=== PATIENT | male | born 1980 | race African-American/Black ===

== ENCOUNTER 2018-09-13 10:13 | Inpatient (IN) | payer MEDICAID, OTHER ==
[~2018-09-13] VITALS: Ht 182.9 cm; Wt 86.7 kg
[2018-09-13] MEDS ORDERED: HYDROCODONE/ACETAMINOPHEN 5/325MG TABLET PO ONE (11:30)
[2018-09-13] MEDS ORDERED: KETAMINE HCL 50 MG/ML 10ML IV ONE ×2 (12:15→14:00)
[2018-09-13] MEDS ORDERED: PROPOFOL 200MG/20ML VIAL IV ONE ×2 (12:15→14:00)
[2018-09-13 14:42] LABS: EOSINOPHILS % 0.7 % (0.0-5.0); HEMATOCRIT. 43.8 % (42.0-52.0); HEMOGLOBIN. 14.6 g/dL (14.0-18.0); LYMPHOCYTES % 17.3 % (20.0-50.0); MEAN CORPUSCULAR HEMOGLOBIN 29.4 pg (28.0-32.0); MEAN CORPUSCULAR VOLUME 88.2 fL (80.0-94.0); MEAN PLATELET VOLUME 7.4 fl (7.4-10.4); PLATELET 285 x1000/uL (130-400); RED BLOOD CELL COUNT 4.96 mill/uL (4.7-6.1); RED CELL DISTRIBUTION WIDTH 14.3 % (11.6-14.6)
[2018-09-13 14:49] LABS: CHLORIDE 106 mEq/L (98-107)
[2018-09-13 14:51] LABS: PROTHROMBIN TIME 9.8 sec (9.1-11.1)
[2018-09-13] MEDS ORDERED: ONDANSETRON HCL 4MG/2ML INJ IV PRN (15:15)
[2018-09-13] MEDS ORDERED: ACETAMINOPHEN 650MG/20.3ML UDC GT PRN (15:15)
[2018-09-13] MEDS ORDERED: ACETAMINOPHEN 325MG TABLET PO PRN (15:15)
[2018-09-13] MEDS ORDERED: ACETAMINOPHEN 650MG SUPP PR PRN (15:15)
[2018-09-13] MEDS: HYDROCODONE/ACETAMINOPHEN 10/325MG TABLET PO PRN (19:06)
[2018-09-13 23:00] VITALS: BP 142/75
[2018-09-14] VITALS: BP 142/75
[2018-09-14 00:03] LABS: CREATINE KINASE 587 IU/L (39-308); CREATINE KINASE MB FRACTION 1.5 ng/mL (0.5-3.6)
[2018-09-14] MEDS: HYDROCODONE/ACETAMINOPHEN 10/325MG TABLET PO PRN ×4 (00:22→20:55)
[2018-09-14 04:00] VITALS: BP 148/92
[2018-09-14] MEDS ORDERED: AMINOCAPROIC ACID 250 MG/ML 20ML VIAL ONE (06:51)
[2018-09-14] MEDS ORDERED: MAGNESIUM SULFATE 5GM/10ML VIAL IV ONE (06:51)
[2018-09-14 07:37] LABS: BASOPHILS % 0.7 % (0.0-2.0); EOSINOPHILS % 1.1 % (0.0-5.0); HEMATOCRIT. 43.3 % (42.0-52.0); HEMOGLOBIN. 14.7 g/dL (14.0-18.0); LYMPHOCYTES % 18.3 % (20.0-50.0); MEAN CORPUSCULAR HEMOGLOBIN 29.9 pg (28.0-32.0); MEAN CORPUSCULAR VOLUME 87.8 fL (80.0-94.0); MEAN PLATELET VOLUME 8.3 fl (7.4-10.4); MONOCYTES % 13.1 % (2.0-8.0); NEUTROPHILS % 66.8 % (40.0-76.0); PLATELET 286 x1000/uL (130-400); RED BLOOD CELL COUNT 4.93 mill/uL (4.7-6.1); RED CELL DISTRIBUTION WIDTH 13.9 % (11.6-14.6)
[2018-09-14 08:00] VITALS: BP 112/69
[2018-09-14] MEDS ORDERED: ENOXAPARIN 40MG/0.4ML SYR SUBCUT SCH (09:00)
[2018-09-14 11:34] LABS: CHLORIDE 101 mEq/L (98-107)
[2018-09-14 11:39] LABS: LDL CHOLESTEROL 61 mg/dL (5-100)
[2018-09-14 11:45] LABS: CREATINE KINASE 527 IU/L (39-308); CREATINE KINASE MB FRACTION < 1.0 ng/mL (0.5-3.6); HDL CHOLESTEROL 69 mg/dL (40-59); T4 FREE 0.87 ng/dL (0.76-1.46)
[2018-09-14 12:00] VITALS: BP 139/64
[2018-09-14 16:00] VITALS: BP 130/62
[2018-09-14 20:00] VITALS: BP 126/76
[2018-09-15] VITALS (11 sets, daily range): BP systolic 107–133; BP diastolic 60–80
[2018-09-15 07:08] LABS: BASOPHILS % 0.6 % (0.0-2.0); EOSINOPHILS % 2.1 % (0.0-5.0); HEMATOCRIT. 47.2 % (42.0-52.0); HEMOGLOBIN. 15.6 g/dL (14.0-18.0); LYMPHOCYTES % 23.1 % (20.0-50.0); MEAN CORPUSCULAR HEMOGLOBIN 29.1 pg (28.0-32.0); MEAN CORPUSCULAR VOLUME 88.4 fL (80.0-94.0); MEAN PLATELET VOLUME 7.9 fl (7.4-10.4); MONOCYTES % 10.4 % (2.0-8.0); NEUTROPHILS % 63.8 % (40.0-76.0); PLATELET 309 x1000/uL (130-400); RED BLOOD CELL COUNT 5.34 mill/uL (4.7-6.1); RED CELL DISTRIBUTION WIDTH 14.3 % (11.6-14.6)
[2018-09-15 07:47] LABS: CHLORIDE 97 mEq/L (98-107)
[2018-09-15] MEDS ORDERED: VANCOMYCIN HCL 500 MG/VIAL ONE (18:59)
[2018-09-15] MEDS ORDERED: FENTANYL CITRATE/PF 50MCG/ML 5ML VIAL ONE ×2 (19:13→19:36)
[2018-09-15] MEDS ORDERED: PROPOFOL 200MG/20ML VIAL IV ONE (19:22)
[2018-09-15] MEDS ORDERED: BUPIVACAINE HCL 0.5% (5MG/ML) 50ML ONE (19:36)
[2018-09-15] MEDS ORDERED: DEXT 5%/0.45% NACL 1000ML 1,000 ML IV SCH (19:45)
[2018-09-15] MEDS ORDERED: HYDROMORPHONE HCL/PF 2MG/ML CPJ IM PRN (20:45)
[2018-09-15] MEDS ORDERED: HYDROMORPHONE HCL/PF 2MG/ML CPJ IV ONE ×3 (21:00→21:15)
[2018-09-15] MEDS ORDERED: MORPHINE SULFATE 4 MG/ML CPJ (NOT FOR IM USE) IV PRN (21:00)
[2018-09-15] MEDS ORDERED: HYDROMORPHONE HCL/PF 2MG/ML CPJ IV PRN (21:00)
[2018-09-15] MEDS ORDERED: HYDROMORPHONE HCL/PF 2MG/ML CPJ ONE ×2 (21:02→21:26)
[2018-09-15] MEDS ORDERED: CEFAZOLIN SODIUM 1000MG/VIAL IV SCH (22:00)
[2018-09-15] MEDS: CEFAZOLIN 1000MG PREMIX 50 ML IV SCH (22:00)
[2018-09-15] MEDS ORDERED: DIPHENHYDRAMINE 25MG CAPSULE PO PRN (23:00)
[2018-09-16] MEDS: HYDROCODONE/ACETAMINOPHEN 10/325MG TABLET PO PRN ×3 (00:19→11:50)
[2018-09-16 04:00] VITALS: BP 131/99
[2018-09-16] MEDS: CEFAZOLIN 1000MG PREMIX 50 ML IV SCH ×2 (05:28→18:04)
[2018-09-16 07:37] LABS: BASOPHILS % 0.4 % (0.0-2.0); EOSINOPHILS % 0.9 % (0.0-5.0); HEMATOCRIT. 40.1 % (42.0-52.0); HEMOGLOBIN. 13.6 g/dL (14.0-18.0); LYMPHOCYTES % 11.6 % (20.0-50.0); MEAN CORPUSCULAR HEMOGLOBIN 29.7 pg (28.0-32.0); MEAN CORPUSCULAR VOLUME 87.5 fL (80.0-94.0); MEAN PLATELET VOLUME 7.9 fl (7.4-10.4); MONOCYTES % 11.2 % (2.0-8.0); NEUTROPHILS % 75.9 % (40.0-76.0); PLATELET 267 x1000/uL (130-400); RED BLOOD CELL COUNT 4.58 mill/uL (4.7-6.1); RED CELL DISTRIBUTION WIDTH 13.5 % (11.6-14.6)
[2018-09-16 08:00] VITALS: BP 148/70
[2018-09-16] MEDS ORDERED: MORPHINE SULFATE 4 MG/ML CPJ (NOT FOR IM USE) IV PRN (08:30)
[2018-09-16 10:44] LABS: CHLORIDE 99 mEq/L (98-107)
[2018-09-16 12:00] VITALS: BP 106/62
[2018-09-16 16:00] VITALS: BP 127/78
[2018-09-16 20:00] VITALS: BP 131/79
[2018-09-17] VITALS: BP 139/81
[2018-09-17] MEDS: CEFAZOLIN 1000MG PREMIX 50 ML IV SCH ×2 (02:55→09:19)
[2018-09-17 04:00] VITALS: BP 123/82
[2018-09-17 08:00] VITALS: BP 122/77
== END 2018-09-17 12:53 | disposition left against medical advice (07) | DRG 313 ==
LOC: ER 10:47 → EDBEDREQ 14:16 → ENRESERV 21:28 → 6EST 22:59
PROVIDERS: ADMIT Internal Medicine; ATTEND Internal Medicine
PROC: 0SSFXZZ Reposition Right Ankle Joint, External Approach (ICD-10-PCS; 2018-09-13)
PROC: 0QSJ04Z Reposition Right Fibula with Internal Fixation Device, Open Approach (ICD-10-PCS; 2018-09-15)
PROC: 0QSG04Z Reposition Right Tibia with Internal Fixation Device, Open Approach (ICD-10-PCS; principal; 2018-09-15 19:30)
DX: S82.841A Displaced bimalleolar fracture of right lower leg, initial encounter for closed fracture (principal); E83.51 Hypocalcemia; F17.210 Nicotine dependence, cigarettes, uncomplicated; D72.829 Elevated white blood cell count, unspecified; Z53.21 Procedure and treatment not carried out due to patient leaving prior to being seen by health care provider; V00.131A Fall from skateboard, initial encounter; Y93.51 Activity, roller skating (inline) and skateboarding; Y92.89 Other specified places as the place of occurrence of the external cause; Y99.8 Other external cause status
CPT/HCPCS: 27840; 36415; 73600; 73610; 80048; 80061; 82550; 82553; 84439; 84443; 84481; 84484; 93005; 96374; 97116; 97162; 99152; 99285; C1713; J0690; J1170; J1650; J2270; J2405; J2704; J3010; J3370; J3475; J3490; Q0163

== ENCOUNTER 2021-03-24 14:51 | Emergency (ER) | payer MEDICAID ==
[~2021-03-24] VITALS: Ht 180.3 cm; Wt 93.0 kg
[2021-03-24 15:35] VITALS: BP 142/87
[2021-03-25] MEDS ORDERED: CEPH500C2 MT (01:26)
[2021-03-25] MEDS ORDERED: DOXY100C2 MT (01:26)
== END 2021-03-24 16:14 | disposition left against medical advice (07) ==
LOC: ER 14:51
DX: Z53.21 Procedure and treatment not carried out due to patient leaving prior to being seen by health care provider (principal)

== ENCOUNTER 2021-03-24 19:54 | Emergency (ER) | payer MEDICAID ==
[~2021-03-24] VITALS: Ht 180.3 cm; Wt 93.0 kg
[2021-03-24] MEDS ORDERED: IBUPROFEN 600MG TABLET PO ONE (23:15)
[2021-03-24] MEDS ORDERED: LIDOCAINE HCL/PF 1% 10 MG/ML 5ML VIAL IJ ONE (23:15)
[2021-03-25] MEDS: BACITRACIN ZINC OINT UDPKT TOP ONE ×2 (00:06→01:53)
[2021-03-25] MEDS ORDERED: DOXY100C2 MT (01:26)
[2021-03-25] MEDS ORDERED: CEPH500C2 MT (01:26)
[2021-03-25 01:57] VITALS: BP 122/83
== END 2021-03-25 01:58 | disposition home or self-care (01) ==
LOC: ER 19:54
DX: L03.011 Cellulitis of right finger (principal); F17.290 Nicotine dependence, other tobacco product, uncomplicated; F12.10 Cannabis abuse, uncomplicated; Z98.890 Other specified postprocedural states; Z79.899 Other long term (current) drug therapy
CPT/HCPCS: 10060; 73130; 99283; J3490

== ENCOUNTER 2022-03-19 10:41 | Emergency (ER) | payer MEDICAID ==
[~2022-03-19] VITALS: Ht 170.2 cm; Wt 67.0 kg
[~2022-03-19 10:41] MED LIST: CEPH500C2 MT; DOXY100C5 MT
[2022-03-19] MEDS ORDERED: SODIUM CHLORIDE 0.9% 1,000 ML IV ONE (11:00)
[2022-03-19] MEDS ORDERED: FAMOTIDINE 20MG/2ML VIAL IV ONE (11:00)
[2022-03-19] MEDS ORDERED: METHYLPREDNISOLONE SOD SUCC 125 MG/2 ML VIAL IV ONE (11:00)
[2022-03-19] MEDS ORDERED: EPINEPHRINE 1:1000 1 MG/ML AMP INJ ONE ×2 (11:00→11:30)
[2022-03-19] MEDS ORDERED: DIPHENHYDRAMINE 50MG/ML VIAL IV ONE (11:00)
[2022-03-19 11:12] LABS: BASOPHILS % 0.6 % (0.0-2.0); EOSINOPHILS % 0.9 % (0.0-5.0); HEMATOCRIT. 46.3 % (42.0-52.0); HEMOGLOBIN. 15.6 g/dL (14.0-18.0); LYMPHOCYTES % 29.6 % (20.0-50.0); MEAN CORPUSCULAR HEMOGLOBIN 29.7 pg (28.0-32.0); MEAN CORPUSCULAR VOLUME 88.4 fL (80.0-94.0); MEAN PLATELET VOLUME 7.3 fl (7.4-10.4); MONOCYTES % 7.6 % (2.0-8.0); NEUTROPHILS % 61.3 % (40.0-76.0); PLATELET 342 x1000/uL (130-400); RED BLOOD CELL COUNT 5.24 mill/uL (4.7-6.1); RED CELL DISTRIBUTION WIDTH 13.8 % (11.6-14.6)
[2022-03-19 11:21] LABS: CHLORIDE 108 mEq/L (98-107)
[2022-03-19 14:37] VITALS: BP 134/88
[2022-03-19] MEDS ORDERED: EPIN0.3P3 IM (15:12)
[2022-03-19] MEDS ORDERED: P50 MT (15:13)
[2022-03-19] MEDS ORDERED: FAMO20TA8 MT (15:13)
== END 2022-03-19 15:50 | disposition home or self-care (01) ==
LOC: ER 10:41
DX: T78.2XXA Anaphylactic shock, unspecified, initial encounter (principal)
CPT/HCPCS: 36415; 71045; 80053; 85025; 96361; 96374; 96375; 99291; J1200; J2930; J3490; J7030

== ENCOUNTER 2022-06-20 19:47 | Emergency (ER) | payer MEDICAID, OTHER ==
[~2022-06-20] VITALS: Ht 180.3 cm; Wt 90.0 kg
[~2022-06-20 19:47] MED LIST changes: +EPIN0.3P3 IM; +FAMO20TA8 MT; +P50 MT
[2022-06-20 20:05] VITALS: BP 149/96
[2022-06-21] MEDS ORDERED: KETOROLAC 60MG/2ML VIAL IM STA (00:10)
[2022-06-21 00:37] LABS: BASOPHILS % 0.2 % (0.0-2.0); EOSINOPHILS % 3.2 % (0.0-5.0); HEMATOCRIT. 43.3 % (42.0-52.0); HEMOGLOBIN. 14.4 g/dL (14.0-18.0); LYMPHOCYTES % 24.2 % (20.0-50.0); MEAN CORPUSCULAR VOLUME 87.4 fL (80.0-94.0); MEAN PLATELET VOLUME 7.1 fl (7.4-10.4); MONOCYTES % 9.2 % (2.0-8.0); NEUTROPHILS % 63.2 % (40.0-76.0); PLATELET 310 x1000/uL (130-400); RED BLOOD CELL COUNT 4.96 mill/uL (4.7-6.1); RED CELL DISTRIBUTION WIDTH 14.4 % (11.6-14.6)
[2022-06-21 00:44] LABS: CHLORIDE 101 mEq/L (98-107)
[2022-06-21 00:52] LABS: ETHANOL BLOOD < 10 mg/dL
[2022-06-21 01:16] LABS: PROTHROMBIN TIME 10.6 sec (9.6-11.0)
== END 2022-06-21 02:10 | disposition home or self-care (01) ==
LOC: ER 19:47
DX: F10.20 Alcohol dependence, uncomplicated (principal); Y90.0 Blood alcohol level of less than 20 mg/100 ml
CPT/HCPCS: 36415; 80053; 80320; 85025; 99283; G0480

== ENCOUNTER 2022-08-10 13:13 | Emergency (ER) | payer MEDICAID, OTHER | END 2022-08-10 13:46 | disposition left against medical advice (07) | LOC: ER 13:13 | DX: Z53.21 Procedure and treatment not carried out due to patient leaving prior to being seen by health care provider (principal) ==

== ENCOUNTER 2025-08-19 12:04 | Emergency (ER) | payer MEDICAID ==
[~2025-08-19] VITALS: Ht 177.8 cm; Wt 78.0 kg
[2025-08-19 12:08] VITALS: TEMP 36.9; O2SAT 100; O2SAT 98
[2025-08-19] MEDS ORDERED: DIPHENHYDRAMINE 50MG CAPSULE PO ONE (13:45)
[2025-08-19] MEDS: DEXAMETHASONE 10 MG/ML VIAL IM ONE (14:06)
[2025-08-19 14:07] VITALS: BP 140/88; PULSE 130; RESP 16
[2025-08-19] MEDS: DIPHENHYDRAMINE 25MG CAPSULE PO SCH (14:07)
[2025-08-19] MEDS: KETOROLAC 15MG/ML VIAL IM ONE (14:07)
[2025-08-19] MEDS ORDERED: NAPR-681 MT (16:13)
[2025-08-19] MEDS ORDERED: DIPH25CA83 PO (16:13)
[2025-08-19] MEDS ORDERED: P20 MT (16:13)
== END 2025-08-19 16:19 | disposition home or self-care (01) ==
LOC: ER 12:21
DX: T78.40XA Allergy, unspecified, initial encounter (principal); Z79.899 Other long term (current) drug therapy; X58.XXXA Exposure to other specified factors, initial encounter
CPT/HCPCS: 96372; 99284; Q0163; J1100; J1885; Z7610